=== PATIENT | female | born 1990 | race Caucasian/White ===

== ENCOUNTER 2016-12-09 05:51 | Emergency (ER) | payer BC ==
[2016-12-09] MEDS ORDERED: 0.9 % SODIUM CHLORIDE 1,000 ML BAG IV ONE (06:14)
--- NOTE | 2016-12-09 06:23 | Emergency Department Record ---
History of Present Illness - General Chief Complaint: Dizziness Stated Complaint: FEELING "OUT OF IT" Time Seen by Provider: 12/09/16 06:14 Source: Patient Mode of Arrival: EMS Limitations: No limitations - History of Present Illness Initial Comments: 26 yo female presents by EMS from work. She states she went to work last night and did not feel well. She states she feels tired, dizzy, equilibrium is off. For couple weeks she has been getting very little sleep. Her brother is a patient at [employer] She works 7 days a week nights, visits him, then sleeps a few hours a day. She feels very stressed out and anxious. She has been dealing with dental pain as well. No fevers. No cough. No headaches. MD Complaint: Other (Weak, tired, trouble concentrating) Onset/Timin -: Days(s) Description: Difficulty walking, Lightheadedness History of Same: Yes Improves With: Nothing Worsens With: Nothing Associated Symptoms: Weakness - [place] Coma Scale Eye Response: (4) Open spontaneously Motor Response: (6) Obeys commands Verbal Response: (5) Oriented Mariusz Total: 15 - Related Data Home Medications Medication Instructions Recorded Confirmed Last Taken Penicillin V Potassium 500 mg PO BID 12/09/16 12/09/16 Unknown Allergies Allergy/AdvReac Type Severity Reaction Status Date / Time cefixime [From Suprax] Allergy PT UNSURE Verified 07/20/15 12:45 OF REACTION IMMUNIZATIONS AdvReac Severe GUILLAIN Uncoded 09/20/15 15:23 BARRE SYNDROME Travel Screening - Travel/Exposure Within Last 30 Days Have you traveled within the last 30 days?: No Review of Systems Constitutional: Reports: Malaise, Weakness. Denies: Chills, Fever Eyes: Denies: Eye discharge, Eye pain, Photophobia, Vision change ENT: Reports: Congestion. Denies: Ear pain, Throat pain Respiratory: Denies: Cough, Dyspnea, Hemoptysis, Stridor, Wheezes Cardiovascular: Denies: Chest pain, Palpitations, Syncope Endocrine: Reports: Fatigue. Denies: Polydipsia, Polyuria Gastrointestinal: Denies: Abdominal pain, Diarrhea, Nausea, Vomiting Genitourinary: Denies: Dysuria, Hematuria, Urgency Musculoskeletal: Denies: Arthralgia, Back pain, Joint swelling, Myalgia, Neck pain Skin: Denies: Change in color Neurological: Reports: Confusion, Vertigo, Weakness. Denies: Abnormal gait, Headache, Numbness, Seizure, Tingling, Tremors Psychiatric: Reports: Anxiety, Depression. Denies: Auditory hallucinations, Suicidal thoughts, Visual hallucinations Hematological/Lymphatic: Denies: Blood Clots, Easy bleeding, Easy bruising, Swollen glands Past Medical History - SOCIAL HISTORY Smoking Status: Current every day smoker Alcohol Use: Rare Drug Use: None - RESPIRATORY Hx Respiratory Disorders: No - CARDIOVASCULAR Hx Cardio Disorders: No - NEURO Hx Neuro Disorders: No - GI Hx GI Disorders: No - Hx Genitourinary Disorders: No - ENDOCRINE Hx Endocrine Disorders: No - MUSCULOSKELETAL Hx Musculoskeletal Disorders: Yes Comment:: hx of guillaine barre - PSYCH Hx Psych Problems: No - HEMATOLOGY/ONCOLOGY Hx Hematology/Oncology Disorders: No Family Medical History Any Significant Family History?: Yes Family Hx Comment (NOT TO BE USED IN PLACE OF ITEMS BELOW): ALS- MOM Hx Stroke: Grandparents Physical Exam - General General Appearance: Alert, Oriented x3, Cooperative, No acute distress, Anxious Limitations: No limitations, Other (No confusion, she is fully oriented and a thorough historian) - Head Head exam: Atraumatic, Normocephalic, Normal inspection - Eye Eye exam: Normal appearance, PERRL, EOMI. negative: Conjunctival injection, Periorbital swelling - ENT ENT exam: Normal exam Ear exam: Normal external inspection Nasal Exam: Discharge (clear). negative: Normal inspection Mouth exam: Normal external inspection Teeth exam: Dental caries, Fractured tooth #, Other (no swelling, no abnormal erythema, no pus). negative: Normal inspection, Dental tenderness #, Gingival enlargement Throat exam: Normal inspection - Neck Neck exam: Normal inspection, Full ROM, Lymphadenopathy (few small anterior LN, soft and mobile). negative: Tenderness - Respiratory Respiratory exam: Normal lung sounds bilaterally. negative: Respiratory distress - Cardiovascular Cardiovascular Exam: Regular rate, Normal rhythm, Normal heart sounds - GI/Abdominal GI/Abdominal exam: Soft. negative: Distended - Rectal Rectal exam: Deferred - exam: Deferred - Extremities Extremities exam: Normal inspection, Full ROM, Normal capillary refill. negative: Tenderness - Back Back exam: Reports: Normal inspection, Full ROM. Denies: CVA tenderness (R), CVA tenderness (L), Muscle spasm, Rash noted, Tenderness - Neurological Neurological exam: Alert, Normal gait, Oriented X3. negative: Altered - Psychiatric Psychiatric exam: Anxious. negative: Manic - Skin Skin exam: Dry, Intact, Normal color, Warm Course - Reevaluation(s) Reevaluation #1: The UDS was positive for marijuana and amphetamine No acute changes to the CBC, CMP The remaining results were signed out to Dr Clayton for review 12/09/16 07:01 Medical Decision Making - Lab Data Result diagrams: 12/09/16 06:36 12/09/16 06:36 Disposition Forms: Patient Portal Access
[2016-12-09] MEDS ORDERED: KETOROLAC 30 MG/ML VIAL IVP ONE (06:37)
[2016-12-09 06:41] LABS: URINE APPEARANCE CLEAR; URINE BILIRUBIN NEGATIVE (NEGATIVE); URINE BLOOD NEGATIVE (NEGATIVE); URINE COLOR YELLOW; URINE GLUCOSE (UA) NEGATIVE (NEGATIVE); URINE KETONE NEGATIVE (NEGATIVE); URINE LEUKOCYTE ESTERASE NEGATIVE (NEGATIVE); URINE NITRITE NEGATIVE (NEGATIVE); URINE PROTEIN NEGATIVE (NEGATIVE); URINE UROBILINOGEN 0.2 E.U./dL (0.20 - 1.00)
[2016-12-09 06:42] LABS: BASO % 0.3 % (0-6); GRAN % 54.2 % (47-80); LYMPH % 33.1 % (16-45); MEAN CELL VOLUME 90.5 fl (81-97); MEAN CORPUSCULAR HEMOGLOBIN 31.7 pg (27-33); MEAN PLATELET VOLUME 10.4 fl (7.4-10.4); MONO % 10.4 % (0-9); PLATELET COUNT 293 K/uL (130-400); RED BLOOD COUNT 4.42 M/uL (3.80-5.40); RED CELL DISTRIBUTION WIDTH 13.2 % (11.5-14.5)
[2016-12-09 06:44] LABS: HCG,QUALITATIVE URINE NEGATIVE (NEGATIVE)
[2016-12-09 06:46] LABS: AMPHETAMINE SCREEN URINE DETECTED; BARBITURATE SCREEN URINE NOT DETECTED; BENZODIAZEPINE SCREEN URINE NOT DETECTED; COCAINE SCREEN URINE NOT DETECTED; METHADONE SCREEN URINE NOT DETECTED; METHAMPHETAMINE SCREEN NOT DETECTED; OPIATE SCREEN URINE NOT DETECTED; OXYCODONE SCREEN URINE NOT DETECTED; PHENCYCLIDINE SCREEN URINE NOT DETECTED; PROPOXYPHENE SCREEN URINE NOT DETECTED; THC SCREEN URINE DETECTED; TRICYCLIC ANTIDEPRESSANT SCRN NOT DETECTED
[2016-12-09 06:53] LABS: ALB/GLOB RATIO 1.7 (1.1-1.8); ALBUMIN 4.9 gm/dL (3.5-5.0); ALKALINE PHOSPHATASE 69 U/L (38-126); ALT/SGPT 39 U/L (9-52); ANION GAP 13.3 (7-16); AST/SGOT 28 U/L (14-36); BILIRUBIN,TOTAL 0.23 mg/dL (0.2-1.3); BLOOD UREA NITROGEN 14 mg/dL (7-17); CARBON DIOXIDE 27.7 mmol/L (22-30); CREATININE 0.8 mg/dL (0.52-1.04); EST GLOMERULAR FILTRATION RATE > 60 ml/min; GLUCOSE,RANDOM 88 mg/dL (70-110); TOTAL PROTEIN 7.8 gm/dL (6.3-8.2)
--- NOTE | 2016-12-09 07:14 | Emergency Department Record ---
History of Present Illness - General Chief Complaint: Dizziness Stated Complaint: FEELING "OUT OF IT" Time Seen by Provider: 12/09/16 06:14 Source: Patient Mode of Arrival: EMS Limitations: No limitations, Other (No confusion, she is fully oriented and a thorough historian) - History of Present Illness Onset/Timin -: Days(s) Description: Difficulty walking, Lightheadedness History of Same: Yes Improves With: Nothing Worsens With: Nothing Associated Symptoms: Weakness - Mariusz Coma Scale Eye Response: (4) Open spontaneously Motor Response: (6) Obeys commands Verbal Response: (5) Oriented Mariusz Total: 15 - Related Data Home Medications Medication Instructions Recorded Confirmed Last Taken Penicillin V Potassium 500 mg PO BID 12/09/16 12/09/16 Unknown Allergies Allergy/AdvReac Type Severity Reaction Status Date / Time cefixime [From Suprax] Allergy PT UNSURE Verified 07/20/15 12:45 OF REACTION IMMUNIZATIONS AdvReac Severe GUILLAIN Uncoded 09/20/15 15:23 BARRE SYNDROME Travel Screening - Travel/Exposure Within Last 30 Days Have you traveled within the last 30 days?: No Review of Systems Constitutional: Reports: Malaise, Weakness. Denies: Chills, Fever Eyes: Denies: Eye discharge, Eye pain, Photophobia, Vision change ENT: Reports: Congestion. Denies: Ear pain, Throat pain Respiratory: Denies: Cough, Dyspnea, Hemoptysis, Stridor, Wheezes Cardiovascular: Denies: Chest pain, Palpitations, Syncope Endocrine: Reports: Fatigue. Denies: Polydipsia, Polyuria Gastrointestinal: Denies: Abdominal pain, Diarrhea, Nausea, Vomiting Genitourinary: Denies: Dysuria, Hematuria, Urgency Musculoskeletal: Denies: Arthralgia, Back pain, Joint swelling, Myalgia, Neck pain Skin: Denies: Change in color Neurological: Reports: Confusion, Vertigo, Weakness. Denies: Abnormal gait, Headache, Numbness, Seizure, Tingling, Tremors Psychiatric: Reports: Anxiety, Depression. Denies: Auditory hallucinations, Suicidal thoughts, Visual hallucinations Hematological/Lymphatic: Denies: Blood Clots, Easy bleeding, Easy bruising, Swollen glands Past Medical History - SOCIAL HISTORY Smoking Status: Current every day smoker Alcohol Use: Rare Drug Use: None - RESPIRATORY Hx Respiratory Disorders: No - CARDIOVASCULAR Hx Cardio Disorders: No - NEURO Hx Neuro Disorders: No - GI Hx GI Disorders: No - Hx Genitourinary Disorders: No - ENDOCRINE Hx Endocrine Disorders: No - MUSCULOSKELETAL Hx Musculoskeletal Disorders: Yes Comment:: hx of guillaine barre - PSYCH Hx Psych Problems: No - HEMATOLOGY/ONCOLOGY Hx Hematology/Oncology Disorders: No Family Medical History Any Significant Family History?: Yes Family Hx Comment (NOT TO BE USED IN PLACE OF ITEMS BELOW): ALS- MOM Hx Stroke: Grandparents Physical Exam - General Limitations: No limitations, Other (No confusion, she is fully oriented and a thorough historian) Course Vital Signs 12/09/16 06:17 Temperature 98.0 F Pulse Rate [ 68 Pulse Ox Probe] Respiratory 20 Rate Blood Pressure 127/96 [Left Arm] Pulse Ox 100 - Reevaluation(s) Reevaluation #1: 12/09/16 07:14 Assumed care from previous provider, labs reviewed and are grossly unremarkable for an acute process except for positive amphetamine screen in the urine. Reevaluation #2: 12/09/16 07:43 CT Brain: No acute process Patient was updated on all results, sleeping on examination and awakens easily. Patient is alert, appropriate, and answers all questions appropriately. Patient reports that she feeling much better and getting some sleep in the ED and feels that her symptoms are likely the result of a lack of sleep. Patient appears stable for discharge at this time. Medical Decision Making - Lab Data Result diagrams: 12/09/16 06:36 12/09/16 06:36 Lab Results 12/09/16 12/09/16 12/09/16 Range/Units 06:36 06:36 06:36 WBC 7.0 (4.2-12.2) K/uL RBC 4.42 (3.80-5.40) M/uL Hgb 14.0 (11.6-16.0) gm/dl Hct 40.0 (35.0-47.0) % MCV 90.5 (81-97) fl MCH 31.7 (27-33) pg MCHC 35.0 (32-36) g/dl RDW 13.2 (11.5-14.5) % Plt Count 293 (130-400) K/uL MPV 10.4 (7.4-10.4) fl Gran % 54.2 (47-80) % Lymphocytes % 33.1 (16-45) % Monocytes % 10.4 H (0-9) % Eosinophils % 2.0 (0-6) % Basophils % 0.3 (0-6) % Sodium 143 (136-145) mmol/L Potassium 3.7 (3.5-5.1) mmol/L Chloride 102 (98-107) mmol/L Carbon Dioxide 27.7 (22-30) mmol/L Anion Gap 13.3 (7-16) BUN 14 (7-17) mg/dL Creatinine 0.8 (0.52-1.04) mg/dL Estimated GFR > 60 ml/min Random Glucose 88 (70-110) mg/dL Calcium 9.2 (8.5-10.1) mg/dL Total Bilirubin 0.23 (0.2-1.3) mg/dL AST 28 (14-36) U/L ALT 39 (9-52) U/L Alkaline Phosphatase 69 (38-126) U/L Total Protein 7.8 (6.3-8.2) gm/dL Albumin 4.9 (3.5-5.0) gm/dL Globulin 2.9 (1.4-4.8) gm/dL Albumin/Globulin Ratio 1.7 (1.1-1.8) Urine Color Yellow Urine Appearance Clear Urine pH 5.5 (5.0-8.0) Ur Specific [place] >= 1.030 (1.002-1.030) Urine Protein Negative (NEGATIVE) Urine Glucose (UA) Negative (NEGATIVE) Urine Ketones Negative (NEGATIVE) Urine Blood Negative (NEGATIVE) Urine Nitrite Negative (NEGATIVE) Urine Bilirubin Negative (NEGATIVE) Urine Urobilinogen 0.2 (0.20 - 1.00) E.U./dL Ur Leukocyte Esterase Negative (NEGATIVE) Urine HCG, Qual Negative (NEGATIVE) Urine Opiates Screen Ur Oxycodone Screen Urine Methadone Screen Ur Propoxyphene Screen Ur Barbituates Screen Ur Tricyclics Screen Ur Phencyclidine Scrn Ur Amphetamine Screen U Methamphetamines Scrn U Benzodiazepines Scrn Urine Cocaine Screen Urine Cannabis Screen Ethyl Alcohol 0.000 (0-0.010) g/dL 12/09/16 Range/Units 06:36 WBC (4.2-12.2) K/uL RBC (3.80-5.40) M/uL Hgb (11.6-16.0) gm/dl Hct (35.0-47.0) % MCV (81-97) fl MCH (27-33) pg MCHC (32-36) g/dl RDW (11.5-14.5) % Plt Count (130-400) K/uL MPV (7.4-10.4) fl Gran % (47-80) % Lymphocytes % (16-45) % Monocytes % (0-9) % Eosinophils % (0-6) % Basophils % (0-6) % Sodium (136-145) mmol/L Potassium (3.5-5.1) mmol/L Chloride (98-107) mmol/L Carbon Dioxide (22-30) mmol/L Anion Gap (7-16) BUN (7-17) mg/dL Creatinine (0.52-1.04) mg/dL Estimated GFR ml/min Random Glucose (70-110) mg/dL Calcium (8.5-10.1) mg/dL Total Bilirubin (0.2-1.3) mg/dL AST (14-36) U/L ALT (9-52) U/L Alkaline Phosphatase (38-126) U/L Total Protein (6.3-8.2) gm/dL Albumin (3.5-5.0) gm/dL Globulin (1.4-4.8) gm/dL Albumin/Globulin Ratio (1.1-1.8) Urine Color Urine Appearance Urine pH (5.0-8.0) Ur Specific [place] (1.002-1.030) Urine Protein (NEGATIVE) Urine Glucose (UA) (NEGATIVE) Urine Ketones (NEGATIVE) Urine Blood (NEGATIVE) Urine Nitrite (NEGATIVE) Urine Bilirubin (NEGATIVE) Urine Urobilinogen (0.20 - 1.00) E.U./dL Ur Leukocyte Esterase (NEGATIVE) Urine HCG, Qual (NEGATIVE) Urine Opiates Screen Not detected Ur Oxycodone Screen Not detected Urine Methadone Screen Not detected Ur Propoxyphene Screen Not detected Ur Barbituates Screen Not detected Ur Tricyclics Screen Not detected Ur Phencyclidine Scrn Not detected Ur Amphetamine Screen Detected U Methamphetamines Scrn Not detected U Benzodiazepines Scrn Not detected Urine Cocaine Screen Not detected Urine Cannabis Screen Detected Ethyl Alcohol (0-0.010) g/dL Disposition Disposition: Discharge Clinical Impression: Fatigue Qualifiers: Fatigue type: unspecified Qualified Code(s): R53.83 - Other fatigue Disposition: Home, Self-Care Condition: (2) Stable Instructions: Fatigue (ED) Additional Instructions: Return to ED if your symptoms worsen or if you have any concerns. Follow-up with your family doctor in 3-5 days as directed. Forms: Patient Portal Access Time of Disposition: 07:48
== END 2016-12-09 08:06 | disposition home or self-care (01) ==
LOC: ER 05:51
DX: R42 Dizziness and giddiness (principal); R53.83 Other fatigue; R26.2 Difficulty in walking, not elsewhere classified; R53.1 Weakness; Z79.899 Other long term (current) drug therapy
CPT/HCPCS: 99284 ×2; 96374; 85025; 80053; 81003; 81025; 80305; 70450; G0480; J1885; 80320; J7030

== ENCOUNTER 2017-07-20 03:09 | Emergency (ER) | payer BC ==
--- NOTE | 2017-07-20 03:21 | Emergency Department Record ---
History of Present Illness - General Stated complaint: TOOTH ACHE Time Seen by Provider: 07/20/17 03:10 Source: Patient Mode of Arrival: Ambulatory Limitations: No limitations - History of Present Illness Initial comments: 27 yo female presents with dental pain. She is 33 weeks without complications. Good movements. No bleeding or fluid leakage. She has a right sided fractured tooth. The area has been causing pain for 2 weeks. No fevers. No facial swelling. No trouble swallowing. She has a dental appointment in 1 week. MD complaint: Tooth pain -: Days(s) Severity: Moderate Quality: Aching Consistency: Constant Improves with: None Worsens with: Eating Context- Dental: History of dental caries, Poor dental care - Related Data Home Medications Medication Instructions Recorded Confirmed Last Taken No122/Iron/Folic Acid 1 each PO DAILY 07/20/17 07/20/17 Unknown [ Multi Tablet] Previous Rx's Medication Instructions Recorded Clindamycin HCl 300 mg PO Q6H #28 capsule 07/20/17 Allergies Allergy/AdvReac Type Severity Reaction Status Date / Time cefixime [From Suprax] Allergy PT UNSURE Verified 07/20/15 12:45 OF REACTION IMMUNIZATIONS AdvReac Severe GUILLAIN Uncoded 09/20/15 15:23 BARRE SYNDROME Review of Systems Constitutional: Denies: Chills, Fever, Malaise, Weakness Eyes: Denies: Eye discharge ENT: Reports: Dental pain. Denies: Congestion, Ear pain, Epistaxis, Throat pain Respiratory: Denies: Cough, Dyspnea, Hemoptysis, Wheezes Cardiovascular: Denies: Chest pain, Palpitations, Syncope Endocrine: Denies: Fatigue Gastrointestinal: Denies: Abdominal pain, Diarrhea, Nausea, Vomiting Genitourinary: Reports: Abnormal menses () Musculoskeletal: Denies: Arthralgia, Back pain, Neck pain Skin: Denies: Bruising, Change in color, Rash Neurological: Denies: Headache, Numbness, Weakness Psychiatric: Denies: Anxiety Hematological/Lymphatic: Denies: Blood Clots, Easy bleeding, Easy bruising, Swollen glands Past Medical History - SOCIAL HISTORY Smoking Status: Current every day smoker - RESPIRATORY Hx Respiratory Disorders: No - CARDIOVASCULAR Hx Cardio Disorders: No - NEURO Hx Neuro Disorders: No - GI Hx GI Disorders: No - Hx Genitourinary Disorders: No - ENDOCRINE Hx Endocrine Disorders: No - MUSCULOSKELETAL Hx Musculoskeletal Disorders: Yes Comment:: hx of guillaine barre - PSYCH Hx Psych Problems: No - HEMATOLOGY/ONCOLOGY Hx Hematology/Oncology Disorders: No Physical Exam - General General Appearance: Alert, Oriented x3, Cooperative, No acute distress Limitations: No limitations - Head Head exam: Atraumatic, Normocephalic, Normal inspection - Eye Eye exam: Normal appearance, PERRL. negative: Conjunctival injection, Periorbital swelling - ENT ENT exam: Mucous membranes moist, TM's normal bilaterally Ear exam: Normal external inspection Nasal Exam: Normal inspection Mouth exam: Tongue normal. negative: Drooling, Laceration, Muffled voice, Tongue elevation Throat exam: Normal inspection. negative: Tonsillar erythema, Tonsillomegaly, Tonsillar exudate, R peritonsillar mass, L peritonsillar mass Image of Mouth/Teeth: 1 - fractured with decay, no pus no gum swelling - Neck Neck exam: Normal inspection - Respiratory Respiratory exam: Normal lung sounds bilaterally. negative: Respiratory distress - Cardiovascular Cardiovascular Exam: Regular rate, Normal rhythm, Normal heart sounds - Rectal Rectal exam: Deferred - exam: Deferred - Extremities Extremities exam: Normal inspection - Neurological Neurological exam: Alert, Oriented X3 - Psychiatric Psychiatric exam: Normal affect, Normal mood. negative: Agitated, Anxious - Skin Skin exam: Dry, Intact, Normal color, Warm Course - Reevaluation(s) Reevaluation #1: 07/20/17 03:25 07/20/17 03:26 Disposition Disposition: Discharge Clinical Impression: Pain, dental Disposition: Home, Self-Care Condition: (1) Good Instructions: Toothache (ED) Additional Instructions: Ask your dentist or the pharmacy for Cavit to fill in the exposed area for temporary relief Call your dentist for close follow up Prescriptions: Clindamycin HCl 300 mg PO Q6H #28 capsule Time of Disposition: 03:27 Quality - Quality Measures Quality Measures: N/A - Blood Pressure Screening Does Patient Have Any of the Following: No Systolic Measurement: ~ Screening for High Blood Pressure: < Pre-Hypertensive BP, F/U Documented > [ G8950] Pre-Hypertensive Follow-up Interventions: Referral to alternative/primary care provider.
[2017-07-20] MEDS: CLINDAMYCIN 150 MG CAP PO ONE (03:25)
== END 2017-07-20 03:33 | disposition home or self-care (01) ==
LOC: ER 03:09
DX: S02.5XXA Fracture of tooth (traumatic), initial encounter for closed fracture (principal); K02.9 Dental caries, unspecified; X58.XXXA Exposure to other specified factors, initial encounter
CPT/HCPCS: 99282

== ENCOUNTER 2017-11-07 14:57 | Emergency (ER) | payer BC ==
--- NOTE | 2017-11-07 16:14 | Emergency Department Record ---
History of Present Illness - General Chief Complaint: Back Pain/Injury Stated Complaint: NECK AND SHOULDER PAIN Time Seen by Provider: 11/07/17 16:10 Source: Patient - History of Present Illness Initial Comments: patient has neck pain and anterior chest wall pain left side from carrying her two month baby and also from going back to work. right neck and right trap muscles are painful to palpation. Onset/Timin -: Week(s) Similar Symptoms Previously: Yes Context: Unknown Associated Symptoms: Chest pain Treatments Prior to Arrival: NSAIDS - Related Data Previous Rx's Medication Instructions Recorded Naproxen [Naprosyn] 500 mg PO Q12H #20 tab. 11/07/17 Allergies Allergy/AdvReac Type Severity Reaction Status Date / Time cefixime [From Suprax] Allergy PT UNSURE Verified 07/20/15 12:45 OF REACTION IMMUNIZATIONS AdvReac Severe GUILLAIN Uncoded 09/20/15 15:23 BARRE SYNDROME Travel Screening - Travel/Exposure Within Last 30 Days Have you traveled within the last 30 days?: No - Travel/Exposure Within Last Year Have you traveled outside the [place] in the last year?: No - Additonal Travel Details Have you been exposed to anyone with a communicable illness?: No - Travel Symptoms Symptom Screening: None Review of Systems Reviewed: No additional complaints except as noted below Constitutional: Reports: As per HPI. Denies: Chills, Fever, Malaise, Night sweats, Weakness, Weight change Eyes: Reports: As per HPI. Denies: Eye discharge, Eye pain, Photophobia, Vision change ENT: Reports: As per HPI. Denies: Congestion, Dental pain, Ear pain, Epistaxis , Hearing loss, Throat pain Respiratory: Reports: As per HPI. Denies: Cough, Dyspnea, Hemoptysis, Stridor, Wheezes Cardiovascular: Reports: As per HPI. Denies: Arrhythmia, Chest pain, Dyspnea on exertion, Edema, Murmurs, Orthopnea, Palpitations, Paroxysmal nocturnal dyspnea, Rheumatic Fever, Syncope Endocrine: Reports: As per HPI. Denies: Fatigue, Heat or cold intolerance, Polydipsia, Polyuria Gastrointestinal: Reports: As per HPI. Denies: Abdominal pain, Constipation, Diarrhea, Hematemesis, Hematochezia, Melena, Nausea, Vomiting Genitourinary: Reports: As per HPI. Denies: Abnormal menses, Discharge, Dyspareunia, Dysuria, Frequency, Hematuria, Incontinence, Retention, Urgency Musculoskeletal: Reports: As per HPI, Neck pain, Other (left rib cage pain worse with palpation and movement of chest). Denies: Arthralgia, Back pain, Gout, Joint swelling, Myalgia Skin: Reports: As per HPI. Denies: Bruising, Change in color, Change in hair/ nails, Lesions, Pruritus, Rash Neurological: Reports: As per HPI. Denies: Abnormal gait, Confusion, Headache, Numbness, Paresthesias, Seizure, Tingling, Tremors, Vertigo, Weakness Psychiatric: Reports: As per HPI. Denies: Anxiety, Auditory hallucinations, Depression, Homicidal thoughts, Suicidal thoughts, Visual hallucinations Hematological/Lymphatic: Reports: As per HPI. Denies: Anemia, Blood Clots, Easy bleeding, Easy bruising, Swollen glands Past Medical History - SOCIAL HISTORY Smoking Status: Current every day smoker Alcohol Use: Rare Drug Use: Rare Drug Use Detail:: Marijuana - RESPIRATORY Hx Respiratory Disorders: No - CARDIOVASCULAR Hx Cardio Disorders: No - NEURO Hx Neuro Disorders: No - GI Hx GI Disorders: No - Hx Genitourinary Disorders: No - ENDOCRINE Hx Endocrine Disorders: No - MUSCULOSKELETAL Hx Musculoskeletal Disorders: Yes Comment:: hx of guillaine barre - PSYCH Hx Psych Problems: No - HEMATOLOGY/ONCOLOGY Hx Hematology/Oncology Disorders: No Family Medical History Any Significant Family History?: No Family Hx Comment (NOT TO BE USED IN PLACE OF ITEMS BELOW): ALS- MOM Hx Stroke: Grandparents Physical Exam - General General Appearance: Alert, Oriented x3, Cooperative, No acute distress - Head Head exam: Normal inspection - Eye Eye exam: Normal appearance, PERRL Pupils: Normal accommodation - ENT ENT exam: Normal exam, Mucous membranes moist, Normal external ear exam, Normal orophraynx, TM's normal bilaterally Ear exam: Normal external inspection. negative: External canal tenderness Nasal Exam: Normal inspection. negative: Discharge, Sinus tenderness Mouth exam: Normal external inspection, Tongue normal Teeth exam: Normal inspection. negative: Dental caries Throat exam: Normal inspection. negative: Tonsillar erythema, Tonsillar exudate - Neck Neck exam: Normal inspection, Full ROM. negative: Tenderness - Respiratory Respiratory exam: Normal lung sounds bilaterally. negative: Respiratory distress - Cardiovascular Cardiovascular Exam: Regular rate, Normal rhythm, Normal heart sounds - GI/Abdominal GI/Abdominal exam: Soft, Normal bowel sounds. negative: Tenderness - Rectal Rectal exam: Deferred - exam: Deferred - Extremities Extremities exam: Normal inspection, Full ROM, Normal capillary refill. negative: Tenderness - Back Back exam: Reports: Normal inspection, Full ROM. Denies: Muscle spasm, Rash noted, Tenderness - Neurological Neurological exam: Alert, Normal gait, Oriented X3, Reflexes normal - Psychiatric Psychiatric exam: Normal affect, Normal mood - Skin Skin exam: Dry, Intact, Normal color, Warm Course Vital Signs 11/07/17 15:14 Temperature 98.0 F Pulse Rate [ 82 Pulse Ox Probe] Respiratory 20 Rate Blood Pressure 131/91 [Left Arm] Pulse Ox 97 Disposition Clinical Impression: Chest wall pain Cervical strain, acute Qualifiers: Encounter type: initial encounter Qualified Code(s): S16.1XXA - Strain of muscle, fascia and tendon at neck level, initial encounter Disposition: Home, Self-Care Condition: (1) Good Instructions: Cervical Strain (ED), Costochondritis (ED) Additional Instructions: follow up with family in one week heat to neck twice a day. Prescriptions: Naproxen [Naprosyn] 500 mg PO Q12H #20 tab.dr Forms: Patient Portal Access Time of Disposition: 16:22 Quality - Quality Measures Quality Measures: N/A - Blood Pressure Screening Does Patient Have Any of the Following: No Blood Pressure Classification: Hypertensive Reading Systolic Measurement: 131 Diastolic Measurement: 91 Screening for High Blood Pressure: < Pre-Hypertensive BP, F/U Documented > [ G8950] Pre-Hypertensive Follow-up Interventions: Referral to alternative/primary care provider.
== END 2017-11-07 16:33 | disposition home or self-care (01) ==
LOC: ER 14:57
DX: S16.1XXA Strain of muscle, fascia and tendon at neck level, initial encounter (principal); R07.89 Other chest pain; F17.210 Nicotine dependence, cigarettes, uncomplicated; X50.0XXA Overexertion from strenuous movement or load, initial encounter
CPT/HCPCS: 99282

== ENCOUNTER 2018-01-20 02:36 | Emergency (ER) | payer BC ==
[2018-01-20] MEDS ORDERED: AMOXICILLIN/POTASSIUM CLAV 875MG/125MG TABLET PO ONE (02:42)
--- NOTE | 2018-01-20 02:42 | Emergency Department Record ---
History of Present Illness - General Chief Complaint: Fall Injury Stated Complaint: FALL Time Seen by Provider: 01/20/18 02:41 Source: Patient Mode of Arrival: EMS Limitations: No limitations - History of Present Illness Initial Comments: 28 yo female presents from work. She injured her face/lip. She was walking, turned to respond to someone talking to her and ran into a pole. She has laceration to the left corner of the lip. No dental injury. No jaw pain. No other injuries. NO LOC. No headache or neck pain. MD Complaint: Fall -: Minutes(s) Fall From: Standing When Fall Occurred: Just prior to arrival Fall Witnessed: Yes, by bystander Place Fall Occurred: Work Loss of Consciousness: None Prolonged Down Time?: No Symptoms Prior to Fall: None Location: Face Severity: Mild Quality: Aching Associated Symptoms: Denies - Mariusz Coma Scale Eye Response: (4) Open spontaneously Motor Response: (6) Obeys commands Verbal Response: (5) Oriented Mariusz Total: 15 - Related Data Previous Rx's Medication Instructions Recorded Amoxicillin/Potassium Clav 1 tab PO BID #14 tab 01/20/18 [Augmentin 875-125 Tablet] Allergies Allergy/AdvReac Type Severity Reaction Status Date / Time cefixime [From Suprax] Allergy PT UNSURE Unverified 11/25/17 08:15 OF REACTION IMMUNIZATIONS AdvReac Severe GUILLAIN Uncoded 09/20/15 15:23 BARRE SYNDROME Review of Systems Constitutional: Denies: Chills, Fever Eyes: Denies: Eye discharge, Eye pain, Vision change ENT: Denies: Congestion, Dental pain, Throat pain Respiratory: Denies: Cough Cardiovascular: Denies: Syncope Endocrine: Denies: Fatigue Gastrointestinal: Denies: Abdominal pain, Diarrhea, Nausea, Vomiting Genitourinary: Denies: Dysuria Musculoskeletal: Denies: Arthralgia, Joint swelling, Myalgia Skin: Reports: Other (laceration). Denies: Bruising, Change in color Neurological: Denies: Headache Psychiatric: Denies: Anxiety Hematological/Lymphatic: Denies: Easy bleeding, Easy bruising, Swollen glands Past Medical History - SOCIAL HISTORY Smoking Status: Current every day smoker Drug Use: Rare Drug Use Detail:: Marijuana - RESPIRATORY Hx Respiratory Disorders: No - CARDIOVASCULAR Hx Cardio Disorders: No - NEURO Hx Neuro Disorders: No - GI Hx GI Disorders: No - Hx Genitourinary Disorders: No - ENDOCRINE Hx Endocrine Disorders: No - MUSCULOSKELETAL Hx Musculoskeletal Disorders: Yes Comment:: hx of guillaine barre - PSYCH Hx Psych Problems: No - HEMATOLOGY/ONCOLOGY Hx Hematology/Oncology Disorders: No Family Medical History Family Hx Comment (NOT TO BE USED IN PLACE OF ITEMS BELOW): ALS- MOM Hx Stroke: Grandparents Physical Exam - General General Appearance: Alert, Oriented x3, Cooperative, No acute distress Limitations: No limitations - Head Head exam: negative: Atraumatic Head exam detail: Laceration Image of Face/Head: 1 - 1cm laceration through ramiro border Image of Chin: 1 - 1cm laceration through ramiro border - Eye Eye exam: Normal appearance, PERRL. negative: Conjunctival injection, Scleral icterus - ENT ENT exam: Normal exam Ear exam: Normal external inspection Nasal Exam: Normal inspection Mouth exam: Laceration, Tongue normal. negative: Normal external inspection, Drooling, Muffled voice, Tongue elevation, Trismus Teeth exam: Normal inspection. negative: Dental caries, Dental tenderness #, Gingival enlargement Throat exam: Normal inspection. negative: Tonsillar erythema, Tonsillar exudate Image of Mouth/Teeth: 1 - 1cm laceration crosses ramiro border 2 - 1.5cm intra oral, somewhat gapping laceration intact teeth - Neck Neck exam: Normal inspection - Cardiovascular Cardiovascular Exam: Regular rate, Normal rhythm, Normal heart sounds - Rectal Rectal exam: Deferred - exam: Deferred - Extremities Extremities exam: Normal inspection - Back Back exam: Reports: Normal inspection. Denies: CVA tenderness (R), CVA tenderness (L), Tenderness - Neurological Neurological exam: Alert, CN II-XII intact, Oriented X3. negative: Motor sensory deficit - Psychiatric Psychiatric exam: Normal affect, Normal mood - Skin Type of lesion: Laceration Course - Reevaluation(s) Reevaluation #1: betadine prep to skin Lidocaine with epi 2ml mental block and local Copious NS irrigation The ramiro border was carefully aligned with Proline 6-0 suture x's 2 The mucosal surface was closed with fast absorbing chromic x's 4 The intra oral laceration was gapping and likely prone to food so 2 fast absorbing sutures placed with good approximation She tolerated this very well We discussed home care, monitoring for signs and symptoms of infection She will return in 5 days for suture removal No allergy history to amoxicillin as she has had it in the past 01/20/18 03:21 Disposition Disposition: Discharge Clinical Impression: Facial laceration Qualifiers: Encounter type: initial encounter Qualified Code(s): S01.81XA - Laceration without foreign body of other part of head, initial encounter Disposition: Home, Self-Care Condition: (1) Good Instructions: Facial Laceration (ED) Additional Instructions: Keep the area clean You may apply vaseline to keep the lip from getting dry Return if you have pain, redness, or any concerns about inflection Take the Augmentin as directed Prescriptions: Amoxicillin/Potassium Clav [Augmentin 875-125 Tablet] 1 tab PO BID #14 tab Forms: Patient Portal Access Time of Disposition: 03:29 Quality - Quality Measures Quality Measures: N/A - Blood Pressure Screening Does Patient Have Any of the Following: No Blood Pressure Classification: Normal BP Reading Systolic Measurement: 110 Diastolic Measurement: 77 Screening for High Blood Pressure: < Normal BP, F/U Not Required > [G8783]
[2018-01-20 04:24] LABS: AMPHETAMINE SCREEN URINE NOT DETECTED; BENZODIAZEPINE SCREEN URINE NOT DETECTED; COCAINE SCREEN URINE NOT DETECTED; OPIATE SCREEN URINE NOT DETECTED; PHENCYCLIDINE SCREEN URINE NOT DETECTED; THC SCREEN URINE NOT DETECTED
[2018-01-20 04:25] LABS: BARBITURATE SCREEN URINE NOT DETECTED; METHADONE SCREEN URINE NOT DETECTED; METHAMPHETAMINE SCREEN NOT DETECTED; OXYCODONE SCREEN URINE NOT DETECTED; PROPOXYPHENE SCREEN URINE NOT DETECTED; TRICYCLIC ANTIDEPRESSANT SCRN NOT DETECTED
== END 2018-01-20 03:40 | disposition home or self-care (01) ==
LOC: ER 02:36
DX: S01.511A Laceration without foreign body of lip, initial encounter (principal); W01.198A Fall on same level from slipping, tripping and stumbling with subsequent striking against other object, initial encounter; F17.210 Nicotine dependence, cigarettes, uncomplicated; Y92.63 Factory as the place of occurrence of the external cause; Y99.0 Civilian activity done for income or pay
CPT/HCPCS: 40650; 80305; 99284

== ENCOUNTER 2018-01-25 07:35 | Emergency (ER) | payer BC, OTHER ==
--- NOTE | 2018-01-25 07:49 | Emergency Department Record ---
History of Present Illness - General Chief Complaint: Suture removal Stated Complaint: SUTURE REMOVAL Time Seen by Provider: 01/25/18 07:45 Source: Patient Mode of arrival: Ambulatory Limitations: No limitations - History of Present Illness Initial Comments: 28 yo female presents for wound check and suture removal. No concerns or questions. She has and infant and states the child has hit her in the area many times. Complaint: Suture/staple removal Onset/Timin -: Days(s) Returns Today for: Staple/stitch removal, Wound recheck Symptoms Since Prior Visit: No new symptoms Associated Symptoms: None - Related Data Previous Rx's Medication Instructions Recorded Amoxicillin/Potassium Clav 1 tab PO BID #14 tab 01/20/18 [Augmentin 875-125 Tablet] Allergies Allergy/AdvReac Type Severity Reaction Status Date / Time cefixime [From Suprax] Allergy PT UNSURE Verified 01/25/18 07:42 OF REACTION IMMUNIZATIONS AdvReac Severe GUILLAIN Uncoded 01/25/18 07:42 BARRE SYNDROME Travel Screening - Travel/Exposure Within Last 30 Days Have you traveled within the last 30 days?: No - Travel/Exposure Within Last Year Have you traveled outside the [place] in the last year?: No - Additonal Travel Details Have you been exposed to anyone with a communicable illness?: No - Travel Symptoms Symptom Screening: None Review of Systems Constitutional: Denies: Chills, Fever Eyes: Denies: Eye discharge, Eye pain ENT: Denies: Congestion, Throat pain Respiratory: Denies: Cough Cardiovascular: Denies: Chest pain Endocrine: Denies: Fatigue Gastrointestinal: Denies: Nausea, Vomiting Genitourinary: Denies: Dysuria Skin: Denies: Bruising, Change in color, Rash Neurological: Denies: Headache Psychiatric: Denies: Anxiety Hematological/Lymphatic: Denies: Easy bleeding, Easy bruising Past Medical History - SOCIAL HISTORY Smoking Status: Current every day smoker Alcohol Use: None Drug Use: None - RESPIRATORY Hx Respiratory Disorders: No - CARDIOVASCULAR Hx Cardio Disorders: No - NEURO Hx Neuro Disorders: No - GI Hx GI Disorders: No - Hx Genitourinary Disorders: No - ENDOCRINE Hx Endocrine Disorders: No - MUSCULOSKELETAL Hx Musculoskeletal Disorders: Yes Comment:: hx of guillaine barre - PSYCH Hx Psych Problems: No - HEMATOLOGY/ONCOLOGY Hx Hematology/Oncology Disorders: No Family Medical History Any Significant Family History?: Yes Family Hx Comment (NOT TO BE USED IN PLACE OF ITEMS BELOW): ALS- MOM Hx Stroke: Grandparents Physical Exam - General General Appearance: Alert, Oriented x3, Cooperative, No acute distress Limitations: No limitations - Head Head exam: Atraumatic, Normal inspection - Eye Eye exam: Normal appearance. negative: Conjunctival injection, Scleral icterus - ENT ENT exam: Normal exam Ear exam: Normal external inspection Nasal Exam: Normal inspection, Other (healing intraoral and lip laceration without any redness or drainage, no visible complications) Mouth exam: Laceration, Tongue normal. negative: Muffled voice, Tongue elevation, Trismus Teeth exam: Normal inspection Throat exam: Normal inspection - Neck Neck exam: Normal inspection - Neurological Neurological exam: Alert, Oriented X3 - Psychiatric Psychiatric exam: Normal affect, Normal mood - Skin Skin exam: Dry, Intact, Normal color, Warm Course Vital Signs 01/25/18 07:38 Temperature 8.4 F L Pulse Rate 80 Respiratory 18 Rate Blood Pressure 133/78 Pulse Ox 98 - Reevaluation(s) Reevaluation #1: 2 non absorbable sutures removed without difficulty Healing well without signs of complication 01/25/18 07:47 Disposition Disposition: Discharge Clinical Impression: Visit for suture removal Disposition: Home, Self-Care Condition: (1) Good Instructions: Stitches Removal (ED) Additional Instructions: Return if any concerns about the healing of the lip laceration Forms: Patient Portal Access Time of Disposition: 07:48 Quality - Quality Measures Quality Measures: N/A - Blood Pressure Screening Does Patient Have Any of the Following: No Blood Pressure Classification: Pre-Hypertensive BP Reading Systolic Measurement: 133 Diastolic Measurement: 78 Screening for High Blood Pressure: < Pre-Hypertensive BP, F/U Documented > [ G8950] Pre-Hypertensive Follow-up Interventions: Referral to alternative/primary care provider.
== END 2018-01-25 07:51 | disposition home or self-care (01) ==
LOC: ER 07:35
DX: Z48.02 Encounter for removal of sutures (principal)

== ENCOUNTER 2018-11-22 08:53 | Emergency (ER) | payer BC, MEDICAID ==
[2018-11-22] MEDS ORDERED: 0.9 % SODIUM CHLORIDE 1,000 ML BAG IV ONE (09:22)
--- NOTE | 2018-11-22 09:25 | Emergency Department Record ---
History of Present Illness - General Chief complaint: complication Stated complaint: SYNCOPAL EPISODE 11/21 Time Seen by Provider: 11/22/18 09:14 Source: Patient Mode of Arrival: Wheelchair Limitations: No limitations - History of Present Illness Initial comments: pt was standing at the sink doing dishes when she felt that she was going to faint, she went to sit down and fainted and fell against the refrigerator. she was not injured. she states she has fainted 5 times and that she has never had a workup. she had a neurologist [for guillian barre] that told her he didnt know what was causing her fainting but that it wasnt seizures. pt just found out that she is Onset/Timin -: Days(s) Radiation: None Consistency: Intermittent Improves with: None Worsens with: None Associated symptoms: Syncope Vaginal bleeding: None LMP (females 10-50): 2 months ago Pre-roxanna care: None - Related Data Home Medications Medication Instructions Recorded Confirmed Last Taken No Home Med [NO HOME MEDS] 11/22/18 11/22/18 Unknown Allergies Allergy/AdvReac Type Severity Reaction Status Date / Time cefixime [From Suprax] Allergy PT UNSURE Verified 01/25/18 07:42 OF REACTION IMMUNIZATIONS AdvReac Severe GUILLAIN Uncoded 01/25/18 07:42 BARRE SYNDROME Review of Systems Reviewed: No additional complaints except as noted below Constitutional: Reports: As per HPI. Denies: Chills, Fever, Malaise, Night sweats, Weakness, Weight change Eyes: Reports: As per HPI. Denies: Eye discharge, Eye pain, Photophobia, Vision change ENT: Reports: As per HPI. Denies: Congestion, Dental pain, Ear pain, Epistaxis , Hearing loss, Throat pain Respiratory: Reports: As per HPI. Denies: Cough, Dyspnea, Hemoptysis, Stridor, Wheezes Cardiovascular: Reports: As per HPI. Denies: Arrhythmia, Chest pain, Dyspnea on exertion, Edema, Murmurs, Orthopnea, Palpitations, Paroxysmal nocturnal dyspnea, Rheumatic Fever, Syncope Endocrine: Reports: As per HPI. Denies: Fatigue, Heat or cold intolerance, Polydipsia, Polyuria Gastrointestinal: Reports: As per HPI. Denies: Abdominal pain, Constipation, Diarrhea, Hematemesis, Hematochezia, Melena, Nausea, Vomiting Genitourinary: Reports: As per HPI. Denies: Abnormal menses, Discharge, Dyspareunia, Dysuria, Frequency, Hematuria, Incontinence, Retention, Urgency Musculoskeletal: Reports: As per HPI. Denies: Arthralgia, Back pain, Gout, Joint swelling, Myalgia, Neck pain Skin: Reports: As per HPI. Denies: Bruising, Change in color, Change in hair/ nails, Lesions, Pruritus, Rash Neurological: Reports: As per HPI. Denies: Abnormal gait, Confusion, Headache, Numbness, Paresthesias, Seizure, Tingling, Tremors, Vertigo, Weakness Psychiatric: Reports: As per HPI. Denies: Anxiety, Auditory hallucinations, Depression, Homicidal thoughts, Suicidal thoughts, Visual hallucinations Hematological/Lymphatic: Reports: As per HPI. Denies: Anemia, Blood Clots, Easy bleeding, Easy bruising, Swollen glands Past Medical History - SOCIAL HISTORY Smoking Status: Current every day smoker - RESPIRATORY Hx Respiratory Disorders: No - CARDIOVASCULAR Hx Cardio Disorders: No - NEURO Hx Neuro Disorders: No - GI Hx GI Disorders: No - Hx Genitourinary Disorders: No - ENDOCRINE Hx Endocrine Disorders: No - MUSCULOSKELETAL Hx Musculoskeletal Disorders: Yes Comment:: hx of guillaine barre - PSYCH Hx Psych Problems: No - HEMATOLOGY/ONCOLOGY Hx Hematology/Oncology Disorders: No Family Medical History Any Significant Family History?: Yes Family Hx Comment (NOT TO BE USED IN PLACE OF ITEMS BELOW): ALS- MOM Hx Stroke: Grandparents Physical Exam - General General Appearance: Alert, Oriented x3, Cooperative, Mild distress - Head Head exam: Normal inspection - Eye Eye exam: Normal appearance, PERRL, EOMI Pupils: Normal accommodation - ENT ENT exam: Normal exam, Mucous membranes moist, Normal external ear exam, Normal orophraynx Ear exam: Normal external inspection. negative: External canal tenderness Nasal Exam: Normal inspection. negative: Discharge, Sinus tenderness Mouth exam: Normal external inspection, Tongue normal Teeth exam: Normal inspection. negative: Dental caries Throat exam: Normal inspection. negative: Tonsillar erythema, Tonsillar exudate - Neck Neck exam: Normal inspection, Full ROM. negative: Tenderness - Respiratory Respiratory exam: Normal lung sounds bilaterally. negative: Respiratory distress - Cardiovascular Cardiovascular Exam: Regular rate, Normal rhythm, Normal heart sounds - GI/Abdominal GI/Abdominal exam: Soft, Normal bowel sounds. negative: Tenderness - Rectal Rectal exam: Deferred - exam: Deferred - Extremities Extremities exam: Normal inspection, Full ROM, Normal capillary refill. negative: Tenderness - Back Back exam: Reports: Normal inspection, Full ROM. Denies: Muscle spasm, Rash noted, Tenderness - Neurological Neurological exam: Alert, CN II-XII intact, Normal gait, Oriented X3 - Psychiatric Psychiatric exam: Normal affect, Normal mood - Skin Skin exam: Dry, Intact, Normal color, Warm Course Vital Signs 11/22/18 08:57 Temperature 97.3 F L Pulse Rate 83 Respiratory 18 Rate Blood Pressure 130/100 Pulse Ox 97 Medical Decision Making - Lab Data Result diagrams: 11/22/18 09:45 11/22/18 09:45 Disposition Disposition: Discharge Clinical Impression: Syncope Qualifiers: Syncope type: unspecified Qualified Code(s): R55 - Syncope and collapse Disposition: Home, Self-Care Condition: (1) Good Instructions: (ED), Syncope (ED) Additional Instructions: follow up with family doctor this week. rest. return sooner if worse. return holter monitor in 2 days Forms: Patient Portal Access, Return to Work/School Quality - Quality Measures Quality Measures: N/A - Blood Pressure Screening Does Patient Have Any of the Following: No Blood Pressure Classification: Hypertensive Reading Systolic Measurement: 130 Diastolic Measurement: 100 Screening for High Blood Pressure: < Pre-Hypertensive BP, F/U Documented > [ G8950] Pre-Hypertensive Follow-up Interventions: Follow-up with rescreen every year.
[2018-11-22 09:58] LABS: BASO % 0.2 % (0-6); EOS % 1.7 % (0-6); GRAN % 66.7 % (47-80); HEMATOCRIT 35.1 % (35.0-47.0); LYMPH % 23.4 % (16-45); MEAN CORPUSCULAR HEMOGLOBIN 30.1 pg (27-33); MEAN CORPUSCULAR HGB CONC 34.2 g/dl (32-36); MEAN PLATELET VOLUME 10.3 fl (7.4-10.4); PLATELET COUNT 271 K/uL (130-400); RED BLOOD COUNT 3.99 M/uL (3.80-5.40); RED CELL DISTRIBUTION WIDTH 13.9 % (11.5-14.5); WHITE BLOOD COUNT W/O DIFF 6.4 K/uL (4.2-12.2)
[2018-11-22 09:58] LABS: URINE APPEARANCE CLEAR; URINE BILIRUBIN NEGATIVE (NEGATIVE); URINE BLOOD NEGATIVE (NEGATIVE); URINE COLOR YELLOW; URINE GLUCOSE (UA) NEGATIVE (NEGATIVE); URINE KETONE NEGATIVE (NEGATIVE); URINE LEUKOCYTE ESTERASE NEGATIVE (NEGATIVE); URINE NITRITE NEGATIVE (NEGATIVE); URINE PROTEIN NEGATIVE (NEGATIVE); URINE UROBILINOGEN 0.2 E.U./dL (0.20 - 1.00)
[2018-11-22 09:59] LABS: HCG,QUALITATIVE URINE POSITIVE (NEGATIVE)
[2018-11-22 10:09] LABS: BLOOD UREA NITROGEN 4 mg/dL (6-20); CREATININE 0.4 mg/dL (0.5-0.9); EST GLOMERULAR FILTRATION RATE > 60 mL/min
[2018-11-22 10:12] LABS: GLUCOSE,RANDOM 90 mg/dL (74-109)
[2018-11-22 10:14] LABS: INFLUENZA A NEGATIVE (NEGATIVE); INFLUENZA B NEGATIVE (NEGATIVE)
[2018-11-22 10:18] LABS: CKMB < 1.0 ng/mL (<3.77)
--- NOTE | 2018-11-25 16:13 | Holter Monitor Report ---
DATE OF TEST: 11/22/2018 INTERPRETING PHYSICIAN: IMTIAZ TROY M.D. INDICATIONS: SYNCOPE. Ms. Montes underwent 48-hour Holter monitoring starting at 11:11 a.m. on 2018. The patient remained in sinus rhythm during monitoring with an average heart rate of 93 beats per minute. The patient had a minimum heart rate of 49 beats per minute occurring at 1:08 a.m. and a maximum heart rate of 176 beats per minute occurring at 7:59 p.m. on Thursday. These were sinus bradycardia and sinus tachycardia, respectively. Heart rate greater than 120 beats per minute was observed for 7 hours and 49 minutes and heart rate less than 50 beats per minute was not seen. No pauses of 2 seconds or longer were identified. The patient had 8 isolated ventricular ectopic beats and 28 isolated supraventricular ectopic beats. The patient did not report any symptoms in the symptom journal. IMPRESSION: 1. THIS 48-HOUR HOLTER MONITORING REVEALS THE PATIENT TO HAVE SINUS RHYTHM WITH SIGNIFICANT SINUS TACHYCARDIA. THE PATIENT HAD A HEART RATE GREATER THAN 120 BEATS PER MINUTE FOR 7 HOURS AND 49 MINUTES DURING THE 48-HOUR DURATION. SHE HAD A MAXIMUM HEART RATE OF 176 BEATS PER MINUTE AT 7:56 P.M. 2. THE PATIENT, HOWEVER, DID NOT REPORT ANY ACTIVITIES OR ANY SYMPTOMS, AND SO CORRELATION WITH HER SYMPTOMS IS NOT POSSIBLE. JOB NUMBER: [id number] [facility]
== END 2018-11-22 11:56 | disposition home or self-care (01) ==
LOC: ER 08:53
DX: R55 Syncope and collapse (principal); Z32.01 Encounter for pregnancy test, result positive; F17.200 Nicotine dependence, unspecified, uncomplicated
CPT/HCPCS: 80048; 81003; 81025; 82553; 84702; 85025; 87400; 93005; 93010; 93225; 93226; 99284; J7030

== ENCOUNTER 2019-08-21 19:18 | Emergency (ER) | payer MEDICAID ==
[2019-08-21] MEDS ORDERED: HYDROCODONE/APAP 5/325MG TABLET PO ONE (19:48)
--- NOTE | 2019-08-21 19:54 | Emergency Department Record ---
History of Present Illness - General Chief complaint: ENT Stated complaint: NECK/THROAT PAIN Time Seen by Provider: 08/21/19 19:47 Source: Patient, Family (father) Mode of Arrival: Ambulatory Limitations: No limitations - History of Present Illness Initial comments: Pt with right lower jaw pain without injury. See at an Urgent Care today and given Amox and Naprosyn for her pains. Pt has no fever or illness, no dental trauma or pain. No ear pain. She is under the care of a DDS with recent extraction a month ago. No issue with that. No other complaints. No DM. Onset/Timin -: Days(s) Location: Throat, Tooth # Severity scale (1-10): 9 Quality: Aching Consistency: Constant Improves with: None Worsens with: Other Context- Dental: History of dental caries, Poor dental care Associated Symptoms: Sore throat, Toothache - Related Data Allergies Allergy/AdvReac Type Severity Reaction Status Date / Time cefixime [From Suprax] Allergy PT UNSURE Verified 08/21/19 19:26 OF REACTION IMMUNIZATIONS AdvReac Severe GUILLAIN Uncoded 08/21/19 19:26 BARRE SYNDROME Travel Screening - Travel/Exposure Within Last 30 Days Have you traveled within the last 30 days?: No - Travel/Exposure Within Last Year Have you traveled outside the [place] in the last year?: No - Additonal Travel Details Have you been exposed to anyone with a communicable illness?: No - Travel Symptoms Symptom Screening: None Review of Systems Constitutional: Denies: Chills, Fever, Weakness Eyes: Denies: Eye discharge, Photophobia ENT: Reports: As per HPI, Dental pain. Denies: Congestion, Ear pain, Throat pain Respiratory: Denies: Cough Cardiovascular: Denies: Arrhythmia, Syncope Endocrine: Denies: Fatigue Gastrointestinal: Denies: Abdominal pain, Nausea, Vomiting Musculoskeletal: Denies: Arthralgia Skin: Denies: Rash Neurological: Denies: Headache, Tingling Psychiatric: Denies: Anxiety Hematological/Lymphatic: Denies: Anemia Past Medical History - SOCIAL HISTORY Smoking Status: Former smoker Alcohol Use: None Drug Use: Heavy Drug Use Detail:: Marijuana - RESPIRATORY Hx Respiratory Disorders: No - CARDIOVASCULAR Hx Cardio Disorders: No - NEURO Hx Neuro Disorders: Yes Comment:: guillian barre - GI Hx GI Disorders: No - Hx Genitourinary Disorders: No - ENDOCRINE Hx Endocrine Disorders: No - MUSCULOSKELETAL Hx Musculoskeletal Disorders: Yes Comment:: hx of guillaine barre - PSYCH Hx Psych Problems: No - HEMATOLOGY/ONCOLOGY Hx Hematology/Oncology Disorders: No Family Medical History Any Significant Family History?: Yes Family Hx Comment (NOT TO BE USED IN PLACE OF ITEMS BELOW): ALS- MOM Hx Stroke: Grandparents Physical Exam - General General Appearance: Alert, Oriented x3, Cooperative, Mild distress - Head Head exam: Atraumatic, Normal inspection - Eye Eye exam: PERRL, EOMI - ENT ENT exam: Mucous membranes moist, Normal external ear exam, Normal orophraynx, TM's normal bilaterally Teeth exam: Dental caries, Other (No evidence of abscess to gums, no dental pain in right lower jaw percussion. ). negative: Dental tenderness #, Gingival enlargement Throat exam: Normal inspection. negative: Tonsillar exudate (No paratoid gland tenderness or enlargement, no supmandibular enlargement. Whaton's and Carl's Ducts without erythema or stone seen), R peritonsillar mass, L peritonsillar mass - Neck Neck exam: Normal inspection, Full ROM. negative: Lymphadenopathy, Tenderness, Thyromegaly - Respiratory Respiratory exam: Normal lung sounds bilaterally. negative: Rhonchi - GI/Abdominal GI/Abdominal exam: Soft. negative: Tenderness - Extremities Extremities exam: Normal inspection, Full ROM. negative: Pedal edema - Back Back exam: Reports: Normal inspection - Neurological Neurological exam: Alert, Normal gait, Oriented X3 - Psychiatric Psychiatric exam: Normal affect, Normal mood - Skin Skin exam: Normal color. negative: Rash Course Vital Signs 08/21/19 19:23 Temperature 98.5 F Pulse Rate [ 73 Pulse Ox Probe] Respiratory 24 Rate Blood Pressure 152/91 [Left Arm] Pulse Ox 100 - Reevaluation(s) Reevaluation #1: 08/21/19 19:52 Seen and examined. No dental trauma, abscess, swelling gums, TM without erythema, no Parotid enlargement or tenderness. On Amox and has DDS to see in AM. We discussed pain management and we will give one [place] 5mg in ED and none for home. Miriam DDS with continue pain management as needed. She agrees with plan. Disposition Disposition: Discharge Clinical Impression: Jaw pain, non-TMJ Disposition: Home, Self-Care Condition: (1) Good Additional Instructions: Continue Amoxicillin and see your DDS in the AM without fail. Return to the ED as needed. DO NOT drive with pain meds. Time of Disposition: 19:55 Quality - Quality Measures Quality Measures: N/A - Blood Pressure Screening Does Patient Have Any of the Following: No Blood Pressure Classification: Hypertensive Reading Systolic Measurement: 152 Diastolic Measurement: 91 Screening for High Blood Pressure: < Pre-Hypertensive BP, F/U Documented > [G8950] Pre-Hypertensive Follow-up Interventions: Follow-up with rescreen every year.
== END 2019-08-21 20:03 | disposition home or self-care (01) ==
LOC: ER 19:18
DX: R68.84 Jaw pain (principal)
CPT/HCPCS: 99283